=== PATIENT | male | born 1990 | race African-American/Black ===

== ENCOUNTER 2017-03-28 23:53 | Emergency (ER) | payer MEDICARE, OTHER ==
[2017-03-29 00:41] LABS: CARBON DIOXIDE 31.6 mmol/L (21-32); CHLORIDE SERUM 104 mmol/L (98-107); GFR1 > 60 mL/min; GLUCOSE SERUM 105 mg/dL (74-106); POTASSIUM SERUM 4.2 mmol/L (3.5-5.1); SODIUM SERUM 141 mmol/L (136-145)
[2017-03-29 00:45] LABS: ALBUMIN 3.9 g/dL (3.4-5.0); ALKALINE PHOSPHATASE 46 U/L (46-116); ALT/SGPT 77 U/L (16-63); AST/SGOT 26 U/L (15-37); BILIRUBIN TOTAL 0.4 mg/dL (0.20-1.00); LIPASE 99 IU/L (73-393); TOTAL PROTEIN, SERUM 7.2 g/dL (6.4-8.2)
[2017-03-29 01:23] VITALS: BP 125/83
== END 2017-03-29 01:23 | disposition home or self-care (01) ==
LOC: ED 23:53
PROVIDERS: Emergency Medicine
DX: R07.89 Other chest pain (principal)
CPT/HCPCS: 36415; Q0092

== ENCOUNTER 2018-12-22 12:09 | Emergency (ER) | payer OTHER ==
[~2018-12-22] VITALS: Ht 170.2 cm; Wt 100.2 kg
[2018-12-22 12:12] VITALS: BP 130/78; Ht 170.2 cm; Wt 100.2 kg
== END 2018-12-22 13:55 | disposition home or self-care (01) ==
LOC: ED 12:09
DX: H10.33 Unspecified acute conjunctivitis, bilateral (principal)

== ENCOUNTER 2019-02-18 17:05 | Emergency (ER) | payer OTHER ==
[~2019-02-18] VITALS: Ht 172.7 cm; Wt 95.3 kg
[2019-02-18 17:25] VITALS: Ht 172.7 cm; Wt 95.3 kg
[2019-02-18 19:25] VITALS: BP 126/75
== END 2019-02-18 19:25 | disposition home or self-care (01) ==
LOC: ED 17:05
DX: Z13.89 Encounter for screening for other disorder (principal); R07.89 Other chest pain

== ENCOUNTER 2019-10-13 15:34 | Emergency (ER) | payer OTHER ==
[~2019-10-13] VITALS: Ht 172.7 cm; Wt 81.6 kg
[2019-10-13 15:38] VITALS: Ht 172.7 cm; Wt 81.6 kg
[2019-10-13 16:04] LABS: BASOPHIL % 0.7 % (0-2); PLATELET COUNT 261 x10^3mcL (130-400); RED CELL DISTRIBUTION WIDTH 13.8 % (11.5-14.5)
[2019-10-13 16:20] LABS: CALCIUM 9.4 mg/dL (8.5-10.1); CARBON DIOXIDE 28.4 mmol/L (21-32); CHLORIDE SERUM 103 mmol/L (98-107); CREATININE SERUM 1.1 mg/dL (0.7-1.3); GFR1 > 60 mL/min; GLUCOSE SERUM 139 mg/dL (74-106); POTASSIUM SERUM 3.3 mmol/L (3.5-5.1); SODIUM SERUM 142 mmol/L (136-145)
[2019-10-13 16:45] LABS: ALBUMIN 4.6 g/dL (3.4-5.0); ALKALINE PHOSPHATASE 44 U/L (46-116); ALT/SGPT 48 U/L (16-63); AST/SGOT 19 U/L (15-37); BILIRUBIN TOTAL 0.77 mg/dL (0.20-1.00)
[2019-10-13 16:49] LABS: TOTAL PROTEIN, SERUM 8.4 g/dL (6.4-8.2)
[2019-10-13 17:24] VITALS: BP 137/89
== END 2019-10-13 17:24 | disposition home or self-care (01) ==
LOC: ED 15:34
PROVIDERS: Emergency Medicine
DX: F41.9 Anxiety disorder, unspecified (principal); E78.00 Pure hypercholesterolemia, unspecified
CPT/HCPCS: 36415

== ENCOUNTER 2019-10-14 22:26 | Emergency (ER) | payer OTHER, MEDICAID ==
[~2019-10-14] VITALS: Ht 170.2 cm; Wt 92.7 kg
[2019-10-15 06:02] LABS: CALCIUM 9.6 mg/dL (8.5-10.1); CHLORIDE SERUM 100 mmol/L (98-107); CREATININE SERUM 1.1 mg/dL (0.7-1.3); GFR1 > 60 mL/min; GLUCOSE SERUM 112 mg/dL (74-106); POTASSIUM SERUM 3.3 mmol/L (3.5-5.1); SODIUM SERUM 140 mmol/L (136-145)
[2019-10-15 06:06] LABS: ALBUMIN 4.8 g/dL (3.4-5.0); ALKALINE PHOSPHATASE 52 U/L (46-116); ALT/SGPT 38 U/L (16-63); AST/SGOT 16 U/L (15-37); BILIRUBIN TOTAL 1.04 mg/dL (0.20-1.00)
[2019-10-15 06:08] LABS: BASOPHIL % 0.4 % (0-2); PLATELET COUNT 237 x10^3mcL (130-400); RED CELL DISTRIBUTION WIDTH 13.9 % (11.5-14.5)
[2019-10-15 06:15] LABS: TOTAL PROTEIN, SERUM 8.5 g/dL (6.4-8.2)
[2019-10-15 13:30] LABS: AMPHETAMINE QUAL UR NONE DETECTED (See below)
[2019-10-15 18:31] VITALS: BP 130/87
== END 2019-10-15 19:13 | disposition home or self-care (01) ==
LOC: ED 22:26
PROVIDERS: Emergency Medicine
DX: F23 Brief psychotic disorder (principal); E78.00 Pure hypercholesterolemia, unspecified
CPT/HCPCS: G0480; J1630; J2060